=== PATIENT | male | born 1945 | race Caucasian/White ===

== ENCOUNTER 2018-02-26 09:53 | Inpatient (IN) | payer MEDICARE, OTHER ==
[~2018-02-26] VITALS: Ht 162.6 cm; Wt 60.3 kg
[2018-02-26] MEDS ORDERED: SODIUM CHLORIDE 0.9% 1000ML 1,000 ML IV STA (09:57)
[2018-02-26 10:26] LABS: BASOPHILS % 0.3 % (0.0-1.0); HEMOGLOBIN 7.3 g/dL (14.0-18.0); LYMPHOCYTES # (AUTO) 0.8 (1.0-3.2); MEAN CORPUSCULAR HEMOGLOBIN 28.7 pg (28-32); MEAN CORPUSCULAR HGB CONC 31.7 g/dL (31-35); MEAN CORPUSCULAR VOLUME 90.6 fL (81-99); MONOCYTES # (AUTO) 0.5 (0.2-0.8); MONOCYTES % 12.9 % (4.4-11.3); NEUTROPHILS # (AUTO) 2.2 (2.1-6.9); NEUTROPHILS % 61.8 % (38.7-80.0); PLATELET COUNT 82 x10e3/uL (140-360); RED BLOOD COUNT 2.54 x10e6/uL (4.3-5.7); RED CELL DISTRIBUTION WIDTH 17.2 % (11.7-14.4)
[2018-02-26 10:54] LABS: ALBUMIN 2.1 g/dL (3.5-5.0); ALBUMIN/GLOBULIN RATIO 0.8 (0.8-2.0); ANION GAP 15.4 mmol/L (8-16); CALCIUM 8.6 mg/dL (8.4-10.2); CREATININE, SERUM 3.32 mg/dL (0.72-1.25); POTASSIUM 4.4 mmol/L (3.5-5.1)
[2018-02-26 10:59] LABS: LYMPHOCYTES % (MANUAL) 27 % (19-48); MONOCYTES % (MANUAL) 10 % (3.4-9.0); NEUTROPHILS % (MANUAL) 63 % (40-74)
[2018-02-26 11:00] LABS: PLATELET ESTIMATE MODERATELY DECREASED; PLATELET MORPHOLOGY COMMENT NORMAL; RBC MORPHOLOGY COMMENT NORMAL
--- NOTE | 2018-02-26 11:00 | Diagnostic Imaging Report ---
CT BRAIN WO HISTORY: Altered mental status COMPARISON: None. TECHNIQUE: Noncontrast axial scans were obtained from skull base to the vertex. Coronal and sagittal reconstructions obtained from the axial data. One or more of the following dose reduction techniques were used: Automated exposure control, adjustment of the mA and/or kV according to patient size, and/or utilization of iterative reconstruction technique. DISCUSSION: Scalp/Skull: Unremarkable. Brain sulci: Mildly prominent. Ventricles: Compensatory dilatation. Extra-axial spaces: No masses or fluid collections. Carotid siphon calcifications are present. Parenchyma: Mild to moderate periventricular white matter hypodensities are likely chronic microvascular ischemic changes. There is an old small cortical infarct in the right occipital pole. Otherwise, no masses, hemorrhage, or large vascular territory acute infarct. Dural sinuses: No abnormal densities. Sellar/Suprasellar region: Intact. Skull base: Intact. Incidental findings: None. IMPRESSION: 1. No acute intracranial abnormalities. 2. 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 3. Mild to moderate supratentorial chronic microvascular ischemic change. Mild generalized cerebral volume loss. Signed by: Dr. Martin Huggins M.D. on 02/26/2018 10:57 AM
[2018-02-26 11:03] LABS: CREATINE KINASE MB 0.6 ng/mL (0-5.0)
--- NOTE | 2018-02-26 11:07 | Diagnostic Imaging Report ---
PROCEDURE: A single AP view of the chest. COMPARISON: None. INDICATIONS: AMS, WEAKNESS FINDINGS: Lines/tubes: There is a right subclavian approach chest port with its tip overlying the cavoatrial junction. Lungs: The lungs are well inflated and clear. There is no evidence of pneumonia or pulmonary edema. Linear opacities in the right lung base appear to represent atelectasis. Followup PA and lateral chest would be of benefit for further characterization. Pleura: There is no pleural effusion or pneumothorax. Heart and mediastinum: The heart and the mediastinum are unremarkable. Right hemidiaphragm is elevated. Bones: No acute bony abnormality. IMPRESSION: Right basilar opacities most likely secondary to atelectasis. Jesus Beckford D.O. Dictated by: Jesus Beckford D.O. on 02/26/2018 at 11:16 Electronically approved by: Jesus Beckford D.O. on 02/26/2018 at 11:16
[2018-02-26] MEDS ORDERED: RESTORIL15 MG PO (11:39)
[2018-02-26] MEDS ORDERED: LANTUS 3ML100 UNITS/ SC (11:39)
[2018-02-26] MEDS ORDERED: GLIPIZIDE5 MG PO (11:39)
[2018-02-26] MEDS ORDERED: FINASTERIDE5 MG PO (11:39)
[2018-02-26] MEDS ORDERED: LOVASTATIN40 MG PO (11:39)
[2018-02-26] MEDS ORDERED: MONTELUKAST SOD10 MG PO (11:39)
[2018-02-26] MEDS ORDERED: TERBINAFINE HC250 MG PO (11:39)
[2018-02-26] MEDS ORDERED: METFORMIN HCL500 MG PO (11:39)
[2018-02-26] MEDS ORDERED: TAZTIA XT240 MG PO (11:39)
[2018-02-26] MEDS ORDERED: BENAZEPRIL HCL10 MG PO (11:39)
[2018-02-26] MEDS ORDERED: HYDROMORPHONE 2MG/ML 2 MG/ML ML IV PRN (13:15)
[2018-02-26] MEDS ORDERED: LACTULOSE SYRUP 20 GM/30 ML UDC PO PRN (13:15)
[2018-02-26] MEDS ORDERED: ACETAMINOPHEN 325 MG TAB PO PRN (13:15)
[2018-02-26] MEDS ORDERED: HYDROMORPHONE 1MG/1ML INJ IV PRN ×2 (13:15)
[2018-02-26] MEDS ORDERED: ZOLPIDEM TARTRATE 5 MG TAB PO PRN (13:15)
[2018-02-26] MEDS ORDERED: ONDANSETRON HCL INJ 2 MG/ML VIAL IV PRN (13:15)
[2018-02-26] MEDS ORDERED: DEXTROSE 50% SYRINGE 50 ML IV PRN (13:15)
[2018-02-26] MEDS ORDERED: DIPHENHYDRAMINE HCL INJ 50 MG/ML VIAL IV PRN (13:15)
[2018-02-26] MEDS: SODIUM CHLORIDE 0.9% 1000ML 1,000 ML IV SCH ×2 (13:34→21:03)
--- OUTSIDE RECORDS SUMMARY | 2018-02-26 13:38 | XMS REPORT ---
Author Author [facility] Address Unknown Phone Unavailable Care Team Providers Care Return To Vendor Name Role Phone Laney ROBBINS Unavailable Unavailable Problems This patient has no known problems. Allergies, Adverse Reactions, Alerts This patient has no known allergies or adverse reactions. Medications This patient has no known medications. Results Test Description Test Time Test Comments Text Results Atomic Results Result Comments CHEST SINGLE (PORTABLE) 2018-02-26 11:16:00 [place] [address] Patient Name: JOSIANE HU MR #: [id number] : 1945 Age/Sex: 72/M Req #: [id number] Adm Physician: Ordered by: LAURA ROBBINS MD Report #: [id number] Location: ER Room/Bed: Procedure: [id number] DX/CHEST SINGLE (PORTABLE) Exam Date: 02/26/18 Exam Time: 1032 REPORT STATUS: Signed PROCEDURE: A single AP view of the chest. DIAMOND RISON: None. INDICATIONS: AMS, WEAKNESS FINDINGS: Lines/tubes: There is a right subclavian approach chest port with its tip overlying the cavoatrial junction. Lungs: The lungs are well inflated and clear. There is no evidence of pneumonia or pulmonary edema. Linear opacities in the right lung base appear to represent atelectasis. Followup PA and lateral chest would be of benefit for further characterization. Pleura: There is no pleural effusion or pneumothorax. Heart and mediastinum: The heart and the mediastinum are unremarkable. Right hemidiaphragm is elevated. Bones: No acute bony abnormality. IMPRESSION: Right basilar opacities most likely secondary to atelectasis. Barbara Beckford D.O. Dictated by: Barbara Beckford D.O. on 02/26/2018 at 11:16 Electronically approved by: Barbara Beckford D.O. on 02/26/2018 at 11:16 Dictated By: BARBARA BECKFORD DO 1116 Transcribed By: NITHYA on 02/26/18 1116 COPY TO: LAURA ROBBINS MD CT BRAIN WO 2018-02-26 10:53:00 [place] [address] Patient Name: JOSIANE HU MR #: [id number] : 1945 Age/Sex: 72/M Req #: [id number] Adm Physician: Ordered by: LAURA ROBBINS MD Report #: [id number] Location: ER Room/Bed: Procedure: [id number] CT/CT BRAIN WO Exam Date: 02/26/18 Exam Time: 1032 REPORT STATUS: Signed CT BRAIN WO HISTORY: Altered mental status COMPARISON: None. TECHNIQUE: Noncontrast axial scans were obtained from skull base to the vertex. Coronal and sagittal reconstructions obtained from the axial data. One or more of the following dose reduction techniques were used: Automated exposure control, adjustment of the mA and/or kV according to patient size, and/or utilization of iterative reconstruction technique. DISCUSSION: Scalp/Skull: Unremarkable. Brain sulci: Mildly prominent. Ventricles: Compensatory dilatation. Extra-axial spaces: No masses or fluid collections. Carotid siphon calcifications are present. Parenchyma: Mild to moderate periventricular white matter hypodensities are likely chronic microvascular ischemic changes. There is an old small cortical infarct in the right occipital pole. Otherwise, no masses, hemorrhage, or large vascular territory acute infarct. Dural sinuses: No abnormal densities. Sellar/Suprasellar region: Intact. Skull base: Intact. Incidental findings: None. IMPRESSION: 1. No acute intracranial abnormalities. 2. 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 3. Mild to moderate supratentorial chronic microvascular ischemic change. Mild generalized cerebral volume loss. Signed by: Dr. Martin Huggins M.D. on 02/26/2018 10:57 AM Dictated By: MARTIN HUGGINS MD 105 Transcribed By: TOSHIA on 02/26/181056 COPY TO: LAURA ROBBINS MD
[2018-02-26 13:54] LABS: CLARITY,URINE HAZY (CLEAR); COLOR,URINE YELLOW (YELLOW)
[2018-02-26 13:55] LABS: BILIRUBIN,URINE NEGATIVE (NEGATIVE); KETONES,URINE NEGATIVE (NEGATIVE); LEUKOCYTE ESTERASE ,URINE NEGATIVE (NEGATIVE); NITRITE,URINE NEGATIVE (NEGATIVE); PROTEIN,URINE DIPSTICK 1+ (NEGATIVE); URINE UROBILINOGEN 0.2 mg/dL (0.2 - 1)
[2018-02-26 14:27] LABS: AMORPHOUS SEDIMENT,URINE MODERATE (FEW); EPITHELIAL CELLS,URINE RARE /LPF; RBC,URINE 0-5 /HPF (0-5); WBC,URINE (MAN) 0-5 /HPF (0-5)
[2018-02-26] MEDS: INSULIN REGULAR, HUMAN 100 UNIT/1 ML 3ML VIAL SQ SCH ×2 (16:30→21:00)
[2018-02-26 16:45] VITALS: BP 119/63
[2018-02-26] MEDS: FAMOTIDINE 20 MG TAB PO SCH (17:35)
[2018-02-26 18:42] VITALS: BP 119/63
[2018-02-26 20:00] VITALS: BP 139/60
[2018-02-26] MEDS ORDERED: LOPERAMIDE HCL 2 MG CAP PO ONE (20:15)
[2018-02-26] MEDS ORDERED: LOPERAMIDE HCL 2 MG CAP PO PRN (20:15)
[2018-02-27] VITALS (7 sets, daily range): BP systolic 113–158; BP diastolic 59–74
--- NOTE | 2018-02-27 02:58 | History and Physical ---
REASON FOR ADMISSION 1. Weakness. 2. Acute renal failure. 3. Dehydration. 4. Pancytopenia. HISTORY OF PRESENT ILLNESS: This patient is 72-year-old gentleman who for recent diagnosis of non-Hodgkin's lymphoma, who presented with profound weakness, is unable to ambulate on his own, acute renal failure, dehydration, pancytopenia, so he is being admitted for further evaluation and treatment. PAST MEDICAL HISTORY: Diabetes, hypertension, and non-Hodgkin's lymphoma. MEDICATIONS: See MAR. ALLERGIES: MULTIPLE. PLEASE SEE LIST. SOCIAL HISTORY: Lives at home nonsmoker and nondrinker. FAMILY HISTORY: Hypertension. PHYSICAL EXAMINATION VITALS: Temperature 96.8, pulse 92, blood pressure 139/60, sats 95% on room air. GENERAL: He is in no apparent distress. NECK: Supple. CARDIOVASCULAR: Regular rate and rhythm. LUNGS: Clear to auscultation bilaterally. ABDOMEN: Good bowel sounds. Soft and nontender. EXTREMITIES: No clubbing or cyanosis. NEUROLOGIC: Nonfocal. ASSESSMENT AND PLAN 1. Acute renal failure and dehydration. We will continue with IV fluids and renal has been consulted. 2. Diabetes. Continue current care and monitoring. 3. Pancytopenia. We will continue to monitor. May need to transfuse for his anemia. 4. Hypertension. Continue to monitor. 5. Non-Hodgkin's lymphoma. We will consult Dr. Huang. Please see hospital chart for full details. Job#: [id number] MIGNON
[2018-02-27 05:52] LABS: CALCIUM 7.7 mg/dL (8.4-10.2); CREATININE, SERUM 3.14 mg/dL (0.72-1.25)
[2018-02-27] MEDS: SODIUM CHLORIDE 0.9% 1000ML 1,000 ML IV SCH ×3 (06:22→21:03)
[2018-02-27] MEDS: INSULIN REGULAR, HUMAN 100 UNIT/1 ML 3ML VIAL SQ SCH ×4 (07:30→21:00)
[2018-02-27] MEDS ORDERED: BENTYL10 MG/1 ML PO (07:58)
[2018-02-27] MEDS ORDERED: ULORIC40 MG PO (07:58)
[2018-02-27] MEDS: INSULIN DETEMIR 100 UNIT/ML PEN SQ SCH (10:28)
[2018-02-27] MEDS: FAMOTIDINE 20 MG TAB PO SCH ×2 (10:28→17:10)
[2018-02-27 10:29] LABS: HEMATOCRIT 21.6 % (38.2-49.6); LYMPHOCYTES # (AUTO) 0.5 (1.0-3.2); LYMPHOCYTES % 25.1 % (18.0-39.1); MEAN CORPUSCULAR HEMOGLOBIN 28.8 pg (28-32); MEAN CORPUSCULAR HGB CONC 31.5 g/dL (31-35); MEAN CORPUSCULAR VOLUME 91.5 fL (81-99); MONOCYTES # (AUTO) 0.3 (0.2-0.8); MONOCYTES % 13.5 % (4.4-11.3); NEUTROPHILS # (AUTO) 1.3 (2.1-6.9); NEUTROPHILS % 60.9 % (38.7-80.0); PLATELET COUNT 89 x10e3/uL (140-360); RED BLOOD COUNT 2.36 x10e6/uL (4.3-5.7)
[2018-02-27 10:32] LABS: HEMOGLOBIN 6.8 g/dL (14.0-18.0)
[2018-02-27] MEDS ORDERED: SODIUM CHLORIDE 0.9% 250ML 250 ML IV ONE (10:45)
[2018-02-27 10:49] LABS: BAND NEUTROPHILS % (MANUAL) 2 %; LYMPHOCYTES % (MANUAL) 26 % (19-48); MONOCYTES % (MANUAL) 9 % (3.4-9.0); NEUTROPHILS % (MANUAL) 62 % (40-74); PLATELET ESTIMATE SLIGHTLY DECREASED; PLATELET MORPHOLOGY COMMENT NORMAL; RBC MORPHOLOGY COMMENT NORMAL
[2018-02-27] MEDS ORDERED: METFORMIN HCL 500 MG TAB PO SCH (17:00)
[2018-02-27] MEDS: GLIPIZIDE 5 MG TAB PO SCH (17:10)
[2018-02-27] MEDS: ONDANSETRON HCL INJ 2 MG/ML VIAL IV PRN (19:28)
[2018-02-28] VITALS (9 sets, daily range): BP systolic 147–167; BP diastolic 68–81
[2018-02-28] MEDS: SODIUM CHLORIDE 0.9% 1000ML 1,000 ML IV SCH ×3 (05:43→21:03)
[2018-02-28 06:47] LABS: BASOPHILS % 0.5 % (0.0-1.0); HEMATOCRIT 29.9 % (38.2-49.6); HEMOGLOBIN 9.7 g/dL (14.0-18.0); LYMPHOCYTES # (AUTO) 0.3 (1.0-3.2); LYMPHOCYTES % 12.9 % (18.0-39.1); MEAN CORPUSCULAR HGB CONC 32.4 g/dL (31-35); MEAN CORPUSCULAR VOLUME 89.5 fL (81-99); MONOCYTES # (AUTO) 0.3 (0.2-0.8); MONOCYTES % 13.9 % (4.4-11.3); NEUTROPHILS # (AUTO) 1.5 (2.1-6.9); NEUTROPHILS % 72.2 % (38.7-80.0); PLATELET COUNT 94 x10e3/uL (140-360); RED BLOOD COUNT 3.34 x10e6/uL (4.3-5.7); RED CELL DISTRIBUTION WIDTH 15.7 % (11.7-14.4)
[2018-02-28 07:08] LABS: ANION GAP 13.8 mmol/L (8-16); CALCIUM 7.9 mg/dL (8.4-10.2); CREATININE, SERUM 3.29 mg/dL (0.72-1.25); POTASSIUM 4.8 mmol/L (3.5-5.1)
[2018-02-28] MEDS: INSULIN REGULAR, HUMAN 100 UNIT/1 ML 3ML VIAL SQ SCH ×4 (07:30→21:00)
[2018-02-28 08:27] LABS: BAND NEUTROPHILS % (MANUAL) 1 %; LYMPHOCYTES % (MANUAL) 11 % (19-48); MONOCYTES % (MANUAL) 1 % (3.4-9.0); NEUTROPHILS % (MANUAL) 87 % (40-74)
[2018-02-28 08:28] LABS: PLATELET ESTIMATE SLIGHTLY DECREASED; PLATELET MORPHOLOGY COMMENT NORMAL; RBC MORPHOLOGY COMMENT NORMAL
[2018-02-28] MEDS: DILTIAZEM HCL ER 120 MG CAPCR PO SCH (09:38)
[2018-02-28] MEDS: INSULIN DETEMIR 100 UNIT/ML PEN SQ SCH (09:38)
[2018-02-28] MEDS: GLIPIZIDE 5 MG TAB PO SCH ×2 (09:38→16:56)
[2018-02-28] MEDS: FAMOTIDINE 20 MG TAB PO SCH ×2 (09:38→16:56)
[2018-02-28] MEDS ORDERED: PHENYLEPH/SHARK OIL/MO/PETROL 30 GM OINT RC PRN (13:45)
[2018-02-28] MEDS: HYDRALAZINE HCL 20 MG/ML VIAL IV PRN (15:01)
[2018-03-01] VITALS (8 sets, daily range): BP systolic 141–162; BP diastolic 67–77
[2018-03-01 05:40] LABS: ANION GAP 15.5 mmol/L (8-16); CALCIUM 8.1 mg/dL (8.4-10.2); CREATININE, SERUM 3.08 mg/dL (0.72-1.25); POTASSIUM 4.5 mmol/L (3.5-5.1)
[2018-03-01] MEDS: SODIUM CHLORIDE 0.9% 1000ML 1,000 ML IV SCH ×2 (05:45→13:52)
[2018-03-01] MEDS ORDERED: FILGRASTIM 300 MCG/ML VIAL SC SCH (06:00)
[2018-03-01 06:14] LABS: ALBUMIN 2.1 g/dL (3.5-5.0); ALBUMIN/GLOBULIN RATIO 0.7 (0.8-2.0); ANION GAP 14.5 mmol/L (8-16); CREATININE, SERUM 3.09 mg/dL (0.72-1.25); POTASSIUM 4.5 mmol/L (3.5-5.1)
[2018-03-01 06:31] LABS: CALCIUM 8.1 mg/dL (8.4-10.2)
[2018-03-01 07:13] LABS: BASOPHILS % 0.4 % (0.0-1.0); EOSINOPHILS % 0.4 % (0.0-6.0); HEMATOCRIT 30.5 % (38.2-49.6); HEMOGLOBIN 10.1 g/dL (14.0-18.0); LYMPHOCYTES # (AUTO) 0.5 (1.0-3.2); LYMPHOCYTES % 20.4 % (18.0-39.1); MEAN CORPUSCULAR HEMOGLOBIN 29.3 pg (28-32); MEAN CORPUSCULAR HGB CONC 33.1 g/dL (31-35); MEAN CORPUSCULAR VOLUME 88.4 fL (81-99); MONOCYTES # (AUTO) 0.4 (0.2-0.8); MONOCYTES % 15.8 % (4.4-11.3); NEUTROPHILS # (AUTO) 1.6 (2.1-6.9); NEUTROPHILS % 61.8 % (38.7-80.0); PLATELET COUNT 122 x10e3/uL (140-360); RED BLOOD COUNT 3.45 x10e6/uL (4.3-5.7)
[2018-03-01] MEDS: INSULIN REGULAR, HUMAN 100 UNIT/1 ML 3ML VIAL SQ SCH ×4 (07:30→21:00)
[2018-03-01] MEDS: FAMOTIDINE 20 MG TAB PO SCH ×2 (08:19→16:01)
[2018-03-01] MEDS: GLIPIZIDE 5 MG TAB PO SCH ×2 (08:19→16:01)
[2018-03-01] MEDS: DILTIAZEM HCL ER 120 MG CAPCR PO SCH (08:20)
[2018-03-01] MEDS: INSULIN DETEMIR 100 UNIT/ML PEN SQ SCH ×2 (09:00→12:32)
--- NOTE | 2018-03-01 14:36 | Diagnostic Imaging Report ---
EXAM: RENAL ULTRASOUND Date: 03/01/2018 12:00 AM Indication: Renal failure Comparison: None Technique: Sonographic evaluation of the kidneys. Color doppler was utilized to supplement evaluation. FINDINGS: KIDNEYS: Right: Measures 10.7 cm in length. No hydronephrosis or solid mass lesion identified. Renal cortex measures 1.5 cm. Left: Measures 11.9 cm in length. No hydronephrosis or solid mass lesion identified. Renal cortex measures 1.4 cm. URINARY BLADDER: Bilateral ureteral jets. Decompression limits evaluation otherwise. OTHER: Prostate not well visualized due to decompressed urinary bladder. IMPRESSION: Unremarkable renal ultrasound. Signed by: Dr. Juan David Batres MD on 03/01/2018 2:32 PM
[2018-03-01] MEDS: FILGRASTIM 480 MCG/0.8 ML SYRINGE SQ SCH (18:22)
[2018-03-01] MEDS ORDERED: DIATRIZOATE MEGL/DIATRIZOA SOD 30 ML BTL PO ONE (19:20)
[2018-03-01] MEDS: ONDANSETRON HCL INJ 2 MG/ML VIAL IV PRN (23:06)
[2018-03-02] VITALS (7 sets, daily range): BP systolic 120–174; BP diastolic 62–80
[2018-03-02] MEDS: SODIUM CHLORIDE 0.9% 1000ML 1,000 ML IV SCH (05:08)
[2018-03-02] MEDS ORDERED: FILGRASTIM 480 MCG/0.8 ML SYRINGE SQ SCH ×2 (06:00→09:00)
[2018-03-02] MEDS: FILGRASTIM 480 MCG/0.8 ML SYRINGE SQ SCH (06:01)
[2018-03-02 06:08] LABS: BASOPHILS % 0.2 % (0.0-1.0); EOSINOPHILS % 0.1 % (0.0-6.0); HEMATOCRIT 29.8 % (38.2-49.6); HEMOGLOBIN 9.8 g/dL (14.0-18.0); LYMPHOCYTES % 6.3 % (18.0-39.1); MEAN CORPUSCULAR HEMOGLOBIN 29.3 pg (28-32); MEAN CORPUSCULAR HGB CONC 32.9 g/dL (31-35); MONOCYTES % 6.1 % (4.4-11.3); NEUTROPHILS # (AUTO) 12.9 (2.1-6.9); NEUTROPHILS % 83.2 % (38.7-80.0); PLATELET COUNT 137 x10e3/uL (140-360); RED BLOOD COUNT 3.35 x10e6/uL (4.3-5.7); RED CELL DISTRIBUTION WIDTH 15.9 % (11.7-14.4)
[2018-03-02 06:29] LABS: ALBUMIN 2.1 g/dL (3.5-5.0); ALBUMIN/GLOBULIN RATIO 0.7 (0.8-2.0); ANION GAP 14.3 mmol/L (8-16); CREATININE, SERUM 3.01 mg/dL (0.72-1.25); POTASSIUM 4.3 mmol/L (3.5-5.1)
--- NOTE | 2018-03-02 07:20 | Diagnostic Imaging Report ---
EXAMINATION: CT of the abdomen and pelvis without contrast. TECHNIQUE: Spiral CT images of the abdomen and pelvis were performed from the lung bases to the lesser trochanters. No intravenous contrast was given per referring physician request. Coronal and sagittal reformatted images were obtained. COMPARISON: None. CLINICAL HISTORY:Lymphoma DISCUSSION: ABSENCE OF INTRAVENOUS CONTRAST DECREASES SENSITIVITY FOR DETECTION OF FOCAL LESIONS AND VASCULAR PATHOLOGY. ABDOMEN/PELVIS: LOWER THORAX: Trace bilateral pleural effusions left larger than right with patchy bilateral lower lobe airspace disease, likely atelectasis. Mitral annular calcifications. HEPATOBILIARY:No focal hepatic lesion or intrahepatic biliary ductal dilatation. The gallbladder is incompletely distended but otherwise unremarkable. SPLEEN: No splenomegaly. PANCREAS: No focal masses or ductal dilatation. ADRENALS: No adrenal nodules. KIDNEYS/URETERS: Punctate left renal calculus (series 2 image 35). No hydronephrosis, additional calculi, or gross renal mass lesion. PELVIC ORGANS/BLADDER: The urinary bladder is incompletely distended but otherwise unremarkable. Prostate and seminal vesicles appear normal. PERITONEUM/RETROPERITONEUM: Trace free fluid tracking along the paracolic gutters and into the lower quadrants, average attenuation 0-5 Hounsfield units. No pneumoperitoneum. LYMPH NODES: No pelvic sidewall, retroperitoneal, or mesenteric lymphadenopathy. VESSELS: Atherosclerotic calcification of the abdominal aorta, major branch vessels, and iliac arterial systems without aneurysmal dilatation of the abdominal aorta. Evaluation is otherwise limited in the absence of intravenous contrast. GI TRACT:The large bowel shows no evidence of distention or wall thickening. The appendix is normal. The stomach is collapsed with prominence of the rugal folds. No small bowel dilatation to suggest obstruction. BONES AND SOFT TISSUES: No focal soft tissue abnormalities. Bone island right femoral head. Multilevel degenerative disc changes and facet arthropathy of the lumbar spine. No osseous destructive lesions. IMPRESSION: No acute intra-abdominal or pelvic CT abnormalities. Punctate nonobstructing left renal calculus. Small volume ascites with trace bilateral pleural effusions suggestive of volume overload. Atherosclerotic vascular disease. No intra-abdominal or pelvic lymphadenopathy in this patient with reported history of lymphoma. Signed by: Dr. Deyvi Mcnamara M.D. on 03/02/2018 7:17 AM
[2018-03-02] MEDS: INSULIN REGULAR, HUMAN 100 UNIT/1 ML 3ML VIAL SQ SCH ×3 (07:30→16:03)
[2018-03-02] MEDS: ONDANSETRON HCL INJ 2 MG/ML VIAL IV PRN (08:27)
[2018-03-02] MEDS: FAMOTIDINE 20 MG TAB PO SCH ×2 (08:28→16:03)
[2018-03-02] MEDS: GLIPIZIDE 5 MG TAB PO SCH ×2 (08:28→16:03)
[2018-03-02] MEDS: DILTIAZEM HCL ER 120 MG CAPCR PO SCH (08:28)
[2018-03-02] MEDS: INSULIN DETEMIR 100 UNIT/ML PEN SQ SCH (09:00)
[2018-03-02 09:07] LABS: BAND NEUTROPHILS % (MANUAL) 9 %; HYPOCHROMASIA SLIGHT; LYMPHOCYTES % (MANUAL) 6 % (19-48); METAMYELOCYTES % (MANUAL) 2 % (0-0); MONOCYTES % (MANUAL) 7 % (3.4-9.0); NEUTROPHILS % (MANUAL) 75 % (40-74)
[2018-03-02 09:08] LABS: ANISOCYTOSIS SLIGHT; PLATELET ESTIMATE SLIGHTLY DECREASED; PLATELET MORPHOLOGY COMMENT FEW LARGE; RBC MORPHOLOGY COMMENT NORMAL
--- NOTE | 2018-03-02 10:07 | Consultation ---
DATE OF CONSULTATION: March 01, 2018 CONSULTATION TO: Dr. Alexandre Rubi Mr. Sandoval is a 72-year-old white male who presented to the ER with history of syncope. The patient claimed that he was so weak that he could not walk. Subsequently was seen by Dr. Green who was microphone operator for me. The patient was found to be fairly anemic with a hemoglobin of less than 7 grams. Subsequently was hydrated. A blood transfusion was given. The BUN was 79 and creatinine of 3.3. Subsequently admitted. SOCIAL HISTORY: Noncontributory. FAMILY HISTORY: Noncontributory. ALLERGIES REPORTED 1. LEVAQUIN. 2. PERIACTIN. 3. TRIMETHOPRIM-SULFAMETHOXAZOLE. 4. CEPHALEXIN. REVIEW OF SYSTEMS HEENT: Normal. CARDIAC: Normal. RESPIRATORY: Normal. GI: Has mantle cell lymphoma involving the colon. : At the present time, came with dehydration and high creatinine. MUSCULOSKELETAL: Normal. SKIN AND BREASTS: Normal. NEUROENDOCRINE: History of diabetes mellitus. PHYSICAL EXAMINATION GENERAL: Moderately built male. Anemic. No palpable adenopathy. HEART: Within normal limits. LUNGS: Clear. ABDOMEN: Obese. RECTAL: Exam deferred. CENTRAL NERVOUS SYSTEM: Essentially normal. LABS: Sodium 138, potassium 4.5, chloride 77, CO2 21, BUN high at 60, creatinine still high at 3.09. WBC of 2.6, hemoglobin 10.1, hematocrit 30.5, platelets of 122,000. Bilirubin 0.5, SGOT 24, SGPT 21, alkaline phosphatase 157. IMPRESSION 1. Anemia of chronic disease, transfused. 2. Thrombocytopenia with a platelet count of 89,000, recovering. 3. Neutropenia. 4. Hypoproteinemia. 5. Hypoalbuminemia. 6. Chronic renal failure. 7. Lymphoma. 8. Syncope, possibly due to low hemoglobin. PLAN, COMMENTS AND SUGGESTIONS: Continue the present treatment. I will give him Neupogen to bring the white count above 10,000. The patient will also have a CAT scan of the abdomen and pelvis, which was done, which was essentially normal. The patient is stable enough to be discharged. Will continue the chemotherapy as outpatient. Job#: [id number] cc:ALEXANDRE RUBI MD
[2018-03-02] MEDS: HYDRALAZINE HCL 20 MG/ML VIAL IV PRN (12:42)
[2018-03-02 14:32] LABS: CREATININE,URINE RANDOM 28.67 mg/dL (63-166); TOTAL PROTEIN, URINE < 6.8 mg/dL (1-14)
[2018-03-02] MEDS ORDERED: FUROSEMIDE INJ 10 MG/ML 2 ML VIAL IV STA (15:39)
[2018-03-02] MEDS ORDERED: LASIX40 MG PO (17:42)
== END 2018-03-02 18:16 | disposition home health service (06) | DRG 683 ==
LOC: ER 09:53 → ERHOLD 13:35 → MED/SURG3 16:35
PROVIDERS: ADMIT Internal Medicine; ATTEND Internal Medicine
PROC: 30233N1 Transfusion of Nonautologous Red Blood Cells into Peripheral Vein, Percutaneous Approach (ICD-10-PCS; principal; 2018-02-27)
DX: N17.9 Acute kidney failure, unspecified (principal); D61.818 Other pancytopenia; C85.90 Non-Hodgkin lymphoma, unspecified, unspecified site; E86.0 Dehydration; R53.81 Other malaise; Z91.81 History of falling; D63.8 Anemia in other chronic diseases classified elsewhere; D69.6 Thrombocytopenia, unspecified; D70.9 Neutropenia, unspecified; E77.8 Other disorders of glycoprotein metabolism; E88.09 Other disorders of plasma-protein metabolism, not elsewhere classified; N18.9 Chronic kidney disease, unspecified; R55 Syncope and collapse; R53.1 Weakness; E11.9 Type 2 diabetes mellitus without complications; I10 Essential (primary) hypertension
CPT/HCPCS: 36415; 70450; 71045; 74176; 76770; 80048; 80053; 81001; 82550; 82553; 82570; 82948; 83630; 83735; 84100; 84156; 84484; 85025; 86850; 86900; 86920; 87045; 87493; 93005; 99284; J0360; J1442; J1940; J2405; J7030; J7050; J7799; P9016